=== PATIENT | male | born 2000 | race Two or more races ===

== ENCOUNTER 2020-06-07 18:37 | Emergency (ER) | payer MEDICAID, OTHER ==
[~2020-06-07] VITALS: Ht 177.8 cm; Wt 72.6 kg
[2020-06-07 22:25] LABS: Urine Bacteria NONE SEEN /hpf (None Seen); Urine Blood Negative /uL (Negative); Urine Mucus FEW (None Seen); Urine WBC <1 /hpf (0 - 3)
[2020-06-08 00:25] VITALS: BP 128/76
== END 2020-06-08 00:59 | disposition home or self-care (01) ==
LOC: ER 18:39
DX: K59.00 Constipation, unspecified (principal); R30.0 Dysuria; Z87.440 Personal history of urinary (tract) infections
CPT/HCPCS: 74176; 81001